=== PATIENT | male | born 1955 | race Caucasian/White ===

== ENCOUNTER → 2016-07-17 | Outpatient (CLI) | payer OTHER ==
[~2016-07-17] MED LIST: DOXE100C PO; HYDR-2762 PO; INSU100V13 SQ; IOHEXOL 180 MG/ML 20ML VIAL. IT ONE; LACT1CAP2 PO; LIDOCAINE 1% Multi-Dose 20 ML VIAL. ID ONE; METF850T2 PO; PANT40TA5 PO; SIMV20TA3 PO; TRAM50TA PO
--- NOTE | 2016-07-17 15:46 | KCIC ---
PROCEDURE Lumbar myelogram 07/17/2016 HISTORY Low back pain which radiates down both legs for the last 6-7 years. TECHNIQUE After the risks and benefits of the procedure were explained to the patient, written informed consent was obtained. The patient was placed prone on the fluoroscopy table and the lower back was prepped and draped in sterile fashion. 1 percent lidocaine was used as a local anesthetic. Under fluoroscopic guidance, the thecal sac of the lumbar cistern was punctured at the L2-3 level using a 25 gauge Honey needle. After confirming clear CSF return, 15 cc of Omnipaque 180 were injected into the thecal sac of the lumbar cistern under fluoroscopic guidance. Following this the needle was removed and hemostasis achieved at the puncture site. A sterile Band-Aid was placed in the skin puncture site. AP, bilateral oblique, lateral and standing neutral and flexion and extension lateral digital spot radiographs of the lumbar spine were obtained. Following this the patient was taken to CT where a CT scan of the lumbar spine was performed. This will be reported separately. The patient was then taken to the recovery area were he was observed for approximately 30 minutes prior to discharge home. The patient tolerated the procedure well and there were no immediate complications. The patient was sent home with an instruction sheet. The total fluoroscopic time for this study was 51 seconds. Nine digital spot radiographs were obtained. FINDINGS Very mild S-shaped curvature of the thoracolumbar spine is seen. Mild to moderate anterolisthesis of L4 in relation to L5 is noted. Degenerative changes are seen throughout the lumbar disc spaces consisting of vertebral endplate sclerosis and minimal to mild anterior and posterior vertebral body osteophyte formation. Disc space narrowing is seen at L4-5 and L5-S1. A moderate anterior extradural defect is seen upon the contrast column at L2-3. A mild to moderate anterior extradural defect is seen upon the contrast column at L4-5. The anterolisthesis of L4 in relation to L5 increases slightly with flexion. There is no evidence of complete block of contrast at any level involving the lumbar vertebrae. Degenerative changes are seen involving the facet joints predominantly at L4-5 and L5-S1. IMPRESSION Degenerative changes are seen throughout the lumbar spine. Mild to moderate anterolisthesis of L4 in relation to L5 is noted. This increases slightly with patient flexion. Electronically signed by: Steve Victoria MD (Jul 17, 2016 15:45:01)
--- NOTE | 2016-07-17 16:04 | KCIC ---
PROCEDURE CT lumbar myelogram 07/17/2016 HISTORY Low back pain which radiates down both legs for the last 6-7 years. TECHNIQUE This study was performed after the patient's lumbar myelogram. Contiguous, 0.6 millimeter axial sections were obtained the lumbar spine. 3 millimeter reconstructed sagittal, axial and coronal images were obtained. One or more of the following individualized dose reduction techniques were utilized for this study: 1. Automated exposure control. 2. Adjustment of the mA and/or kV according to patient size. 3. Use of iterative reconstruction technique. FINDINGS Comparison is made the patient's outside MRI of the lumbar spine dated 04/25/2016. Additional comparison is made the patient's lumbar myelogram performed earlier today. Sagittal and coronal reconstructed images demonstrate very mild S-shaped curvature of the thoracolumbar spine. Mild to moderate anterolisthesis of L4 in relation to L5 is seen. Degenerative changes consisting of vertebral endplate sclerosis and minimal to mild anterior and posterior vertebral body osteophyte formation are seen throughout the lumbar disc spaces. Disc space narrowing is seen at L4-5 and L5-S1. A vacuum disc phenomenon is seen at L5-S1. At the L1-2 disc space there is a minimal generalized disc bulge. Degenerative changes are seen involving the facet joints, bilaterally. These findings do not result in significant central spinal canal or neural foraminal stenosis. At the L2-3 disc space there is a moderate generalized disc bulge. Superimposed on this disc bulge is a central/left paracentral disc osteophyte complex. This measures 5 millimeters in AP diameter. Degenerative changes are seen involving the facet joints bilaterally. There is moderate ligamentum flavum hypertrophy bilaterally. These findings when combined result in moderate to severe left greater than right central spinal canal stenosis. No neural foraminal stenosis is seen. At the L3-4 disc space there is mild generalized disc bulge. Degenerative changes are seen involving the facet joints bilaterally. There is mild ligamentum flavum hypertrophy bilaterally. These findings when combined do not result in significant central spinal canal or neural foraminal stenosis. At the L4-5 disc space there is a moderate generalized disc bulge. Degenerative changes are seen involving the facet joints bilaterally. There is moderate ligamentum flavum hypertrophy bilaterally. These findings when combined result in moderate central spinal canal stenosis. Moderate to severe bilateral neural foraminal stenosis is seen. At the L5-S1 disc space there is a moderate generalized disc bulge. Superimposed on this disc bulge is a focal central disc osteophyte complex. This measures 5 millimeters in AP diameter. Degenerative changes are seen involving the facet joints, right greater than left. These findings do not result in significant central spinal canal stenosis. Mild to moderate right greater than left neural foraminal stenosis is seen. IMPRESSION The changes of degenerative disc disease are seen throughout the lumbar spine. These findings result in moderate to severe left greater than right central spinal canal stenosis L2-3 and moderate central spinal canal stenosis at L4-5. Moderate to severe bilateral neural foraminal stenosis is seen at L4-5. Mild to moderate right greater than left neural foraminal stenosis is seen at L5-S1. Electronically signed by: Steve Victoria MD (Jul 17, 2016 16:03:30)
--- NOTE | 2016-07-17 16:08 | KCIC ---
PROCEDURE AP and lateral lumbar spine radiographs to include flexion and extension views 07/17/2016 HISTORY Low back pain which radiates down both legs for the last 6 years. FINDINGS Standing AP, 2 neutral lateral and flexion and extension lateral digital radiographs of the lumbar spine were obtained. Very mild S-shaped curvature of the thoracolumbar spine is seen. Mild to moderate anterolisthesis of L4 in relation to L5 is noted. This appears to increase slightly with flexion and reduces slightly with extension. Degenerative changes consisting of vertebral endplate sclerosis and minimal to mild anterior and posterior vertebral body osteophyte formation are seen throughout the lumbar disc spaces. Disc space narrowing is seen at L5-S1. Degenerative changes are seen involving the facet joints of the lower lumbar spine. No fracture or subluxation is seen. Calcifications are seen within the pelvis consistent with phleboliths. IMPRESSION Degenerative changes are seen throughout the lumbar spine. Mild to moderate anterolisthesis of L4 in relation to L5 is seen which appears to increase slightly with flexion. Electronically signed by: Steve Victoria MD (Jul 17, 2016 16:07:41)
== END | disposition home or self-care (01) ==
LOC: KCIC 13:13
PROVIDERS: ATTEND Neurological Surgery
DX: M54.16 Radiculopathy, lumbar region (principal); M54.5 Low back pain
CPT/HCPCS: 72110; 72132; 72265